=== PATIENT | female | born 1995 | race African-American/Black ===

== ENCOUNTER → 2021-11-28 11:50 | Outpatient (CLI) | payer OTHER, SELFPAY ==
[2021-11-28 13:01] LABS: Add Manual Diff / Slide Review NO; Basophils Absolute Auto 0 /uL (0-100); Basophils Percent Auto 0.7 % (0-2); Eosinophils Absolute Auto 0 /uL (0-450); Eosinophils Percent Auto 0.8 % (2-4); Hematocrit 38.2 % (36-46); Hemoglobin 12.9 g/dL (12.0-16.0); Lymphocytes Absolute Auto 2100 /uL (1100-4500); Lymphocytes Percent Auto 34.9 % (25-40); Mean Corpuscular HGB Conc 33.8 % (30-36); Mean Corpuscular Hemoglobin 30.1 PG (26-34); Mean Corpuscular Volume 88.9 fL (80-100); Monocytes Absolute Auto 500 /uL (0-900); Monocytes Percent Auto 7.9 % (3-14); Neutrophils Absolute Auto 3300 /uL (1500-7000); Neutrophils Percent Auto 55.7 % (50-75); Platelet Count 235 X10^3/uL (150-400); Red Blood Cell Count 4.29 X10^6/uL (4.0-5.2); Red Cell Distribution Width 12.2 % (11.6-14.8); White Blood Cell Count 5.9 X10^3/uL (4.5-11.0)
[2021-11-28 13:26] LABS: Pregnancy Test Urine Negative (Negative)
[2021-11-28 14:08] LABS: Alanine Aminotransferase 12 IU/L (<35); Albumin 4.3 g/dL (3.5-5.0); Albumin Globulin Ratio 1.3 (1.0-2.8); Alkaline Phosphatase 48 U/L (38-126); Aspartate Aminotransferase 21 IU/L (14-36); BUN Creatinine Ratio 15.7 (6-22); Bilirubin Total 0.3 mg/dL (0.2-1.3); Blood Urea Nitrogen 13 mg/dL (7-17); Calcium 9.8 mg/dL (8.4-10.2); Carbon Dioxide 25 mmol/L (22-32); Chloride 104 mmol/L (98-107); Estimated Glomerular Filt Rate > 60.0 mL/min (>60); Globulin 3.3 g/dL (1.7-4.1); Glucose 85 mg/dL (70-100); HEMOLYSIS < 15 (0-50); Sodium 137 mmol/L (137-145); Total Protein 7.6 g/dL (6.3-8.2)
[2021-11-28 16:52] LABS: Follicle Stimulating Hormone 6.18 mIU/mL; Luteinizing Hormone 4.69 mIU/mL
[2021-12-01 10:21] LABS: Estrogen 260 pg/mL (.)
== END ==
PROVIDERS: Referring Provider Family Medicine; Visit Provider Family Medicine
DX: N94.6 Dysmenorrhea, unspecified (principal)
CPT/HCPCS: 36415; 80053; 81025; 82672; 83001; 83002; 85025

== ENCOUNTER → 2022-04-18 12:13 | Outpatient (CLI) | payer OTHER, SELFPAY ==
--- NOTE | 2022-04-18 12:15 | DI.US.S_ITS ---
PROCEDURE: US PELVIC COMPLETE INDICATIONS: Severe dysmenorrhea, intermenstrual pain TECHNIQUE: Real-time scanning was performed of the pelvic organs, with image documentation. Additional endovaginal scanning was necessary due to incomplete visualization of the adnexal and endometrial structures by transabdominal scanning. COMPARISON: None. FINDINGS: Uterus: Uterus is anteverted and normal in size at 7.5 x 5.3 x 4.2 cm. The myometrium is homogeneous. The endometrium measures 18 mm combined thickness. Ovaries: The right ovary measures 7.2 x 7.1 x 6 cm. The right ovary demonstrates a complex cyst that measures 6.6 x 5 x 5.4 cm and demonstrates a fishnet type echotexture. There is an apparent endometrial mass seen on the right that measures 2.8 x 3.3 x 1.5 cm. The left ovary measures 5.4 x 4.4 x 3.6 cm. On the left side, there is an apparent endometrioma seen measuring 4.7 x 3.7 x 3.1 cm. Other: No pathologic free abdominal or pelvic fluid. IMPRESSION: Apparent bilateral adnexal endometriomas. There is a complex cyst seen involving the right ovary, that measures up to 6.6 cm and most likely represents a hemorrhagic cyst. If it would be clinically appropriate, a followup pelvic ultrasound could be considered in 6 weeks to assure resolution/ improvement. Mildly thickened endometrial stripe. We strive to produce accurate, complete, and clear reports of imaging services. To assist us in improving patient care, this report was composed using standard report templates and voice recognition software. Therefore, it may contain abnormal punctuation, insertions and/or omissions. Occasional wrong-word or sound-alike substitutions may occur. Though we review the report and make efforts to correct it, we do recommend that the report be read carefully in proper context to recognize any text inaccuracies. Dictated by: Montrell Gurrola M.D. on 04/18/2022 at 12:51 Approved by: Montrell Gurrola M.D. on 04/18/2022 at 12:54
== END ==
PROVIDERS: PCP Family Medicine; Referring Provider Obstetrics & Gynecology; Visit Provider Obstetrics & Gynecology
DX: N94.6 Dysmenorrhea, unspecified (principal)
CPT/HCPCS: 76830; 76856

== ENCOUNTER → 2022-05-30 11:20 | Outpatient (CLI) | payer OTHER, SELFPAY ==
--- NOTE | 2022-05-30 11:25 | DI.US.S_ITS ---
PROCEDURE: US PELVIC COMPLETE INDICATIONS: re-check left ovarian complex cyst TECHNIQUE: Real-time scanning was performed of the pelvic organs, with image documentation. Additional endovaginal scanning was necessary due to incomplete visualization of the adnexal and endometrial structures by transabdominal scanning. COMPARISON: [facility], US, US PELVIC COMPLETE, 04/18/2022, 13:58. FINDINGS: Uterus: Uterus is anteverted and normal in size at 7.4 x 3.7 x 4.8 cm. The myometrium is homogeneous. The endometrium measures 11.7 mm combined thickness. Ovaries: The right ovary measures 5.0 x 3.1 x 4.3 cm, with a calculated ovarian volume of 34.4 cc. The left ovary measures 5.7 x 3.9 x 3.9 cm, with a calculated ovarian volume of 45.5 cc. As identified on prior exam, there is a complex appearance of the right and left ovaries relatively unchanged. Other: No pathologic free abdominal or pelvic fluid. IMPRESSION: Suspected appearance of endometrium is within the ovaries relatively unchanged. Further evaluation with pelvic MR may be obtained as indicated. We strive to produce accurate, complete, and clear reports of imaging services. To assist us in improving patient care, this report was composed using standard report templates and voice recognition software. Therefore, it may contain abnormal punctuation, insertions and/or omissions. Occasional wrong-word or sound-alike substitutions may occur. Though we review the report and make efforts to correct it, we do recommend that the report be read carefully in proper context to recognize any text inaccuracies. Dictated by: Regina Dominguez M.D. on 05/30/2022 at 17:15 Approved by: Regina Dominguez M.D. on 05/30/2022 at 17:17
== END ==
PROVIDERS: PCP Family Medicine; Referring Provider Obstetrics & Gynecology; Visit Provider Obstetrics & Gynecology
DX: N83.291 Other ovarian cyst, right side (principal); N83.292 Other ovarian cyst, left side
CPT/HCPCS: 76830; 76856